=== PATIENT | female | born 1965 | race Caucasian/White ===

== ENCOUNTER → 2017-01-07 | Day surgery (SDC) | payer OTHER ==
[~2017-01-07] MED LIST: AMBIEN PO; DIOVAN
--- NOTE | ~2017-01-07 | OR ---
Unit #: [id number] #: [id number] Patient: SO BROWN [id number] [facility] [address] [facility] [place] [facility]. [place], [place] [address] [id number] O MR#: [id number] NAME: SO BROWN. ROOM: Date of Procedure: 01/07/2017 Admission Date: 01/07/2017 Surgeon: Klaus Bowles M.D. : 1965 Attending Physician: Klaus Bowles M.D. Referring Physician: Klaus Bowles M.D. Primary Care Physician: Julian Ortiz M.D. PROCEDURE OPERATIVE NOTE PREOPERATIVE DIAGNOSIS Screening colonoscopy. POSTOPERATIVE DIAGNOSIS Normal colon and rectum. PROCEDURE PERFORMED Colonoscopy to cecum. SURGEON Klaus Bowles M.D. ANESTHESIA Monitored. INDICATIONS 51-year-old female sent for initial colorectal cancer screening. PROCEDURE Patient admitted to [facility], positively identified and transported to the Endoscopy Suite. After appropriate monitoring and positioning, she was sedated by the nurse flea market seller. On rectal examination, there was no local anorectal pathology and digital examination was normal. The colonoscope was passed through the anal verge throughout the extent of the colon and cecum where the appendiceal orifice and ileocecal valve were photo documented. On careful antegrade and retrograde visualization, no abnormalities were noted throughout. The patient tolerated the procedure well and was transported to Recovery in stable condition. Findings were discussed with her . At this time, if she remains otherwise asymptomatic, I would recommend a followup surveillance colonoscopy in ten years. Dictated by... Philly Willard/jacqui TD: 01/07/2017 11:14 JOB #: [id number] Unit #: [id number] #: [id number] Patient: SO BROWN PROCEDURE OPERATIVE NOTE Page 1 of 1 X Klaus Bowles MD X PROCEDURE OPERATIVE NOTE
--- NOTE | ~2017-01-07 | HP ---
Unit #: [id number] #: [id number] Patient: SO BROWN [id number] [address] [address] [id number] O MR#: [id number] NAME: SO BROWN ROOM: Age: 51 Sex: F Admission Date: 01/07/2017 : 1965 Attending Physician: Klaus Bowles M.D. Referring Physician: Klaus Bowles M.D. Primary Care Physician: Julian Ortiz M.D. HISTORY AND PHYSICAL HISTORY Ms. Brown is a 51-year-old female sent for initial screening colonoscopy for colorectal cancer screening. She has no family history of colorectal disease. Otherwise, asymptomatic. PAST MEDICAL HISTORY Hypertension, breast cancer status post mastectomy, history of anxiety. ALLERGIES Penicillin. MEDICATIONS Ambien and Diovan. IMMUNIZATIONS Up to date. She has had a flu vaccine but not a pneumonia vaccine. FAMILY HISTORY Hypertension, diabetes. SOCIAL HISTORY , rarely drinks alcohol. Denies the use of tobacco. She has 2 children. She works in insurance. REVIEW OF SYSTEMS Unremarkable. PHYSICAL EXAMINATION VITAL SIGNS: On exam she is 4'10", 130 pounds. Vital signs within normal limits. GENERAL: Awake, alert and oriented. HEENT: Unremarkable. CARDIAC EXAM: Regular rate and rhythm. LUNGS: Clear. ABDOMEN: Soft. EXTREMITIES: No edema. NEUROLOGIC: Grossly intact. ASSESSMENT AND PLAN A 51-year-old female sent for initial colorectal cancer screening. We discussed the procedure, including risks, benefits, complications and bowel prep. She understands and agrees to proceed. Unit #: [id number] #: [id number] Patient: SO BROWN Dictated by Klaus Bowles M.D. RS/bernadette TD: 01/07/2017 08:49 JOB #: [id number] HISTORY AND PHYSICAL Page 1 of 1 X Klaus Bowles MD HISTORY AND PHYSICAL
== END | disposition home or self-care (01) ==
LOC: COPS 06:01
DX: Z12.11 Encounter for screening for malignant neoplasm of colon (principal); I10 Essential (primary) hypertension; F41.9 Anxiety disorder, unspecified; Z85.3 Personal history of malignant neoplasm of breast; Z88.0 Allergy status to penicillin; Z90.10 Acquired absence of unspecified breast and nipple
CPT/HCPCS: J2250